=== PATIENT | female | born 1995 | race Caucasian/White ===

== ENCOUNTER 2025-02-10 19:22 | Emergency (ER) | payer OTHER, SELFPAY ==
--- OUTSIDE RECORDS SUMMARY | 2025-02-10 19:28 | XMS_ITS | Clinical Summary ---
Author Organization [facility] Address [address] [place] [address] Phone Care Team Providers Care Attendant Arcade Name Role Phone Tushar Giles MD Unavailable Provider, None Primary Care Provider Unavailabl e Allergies Active Allergy Reactions Criticality Noted Date Comments Lactose Diarrhea Low 11/13/2022 Medications valACYclovir HCl (VALTREX PO) Take 500 mg by mouth daily. Active HYDROcodone-acetami nophen (NORCO) 5-325 MG TabletIndications:S /P laparoscopic cholecystectomy Take 1 Tablet by mouth every 8 hours as needed for Moderate or more severe pain. 12 Tablet 11/22/19 23 Active Additional Information Patient not taking.Reported on 12/11/2022 meclizine (ANTIVERT) 25 MG TabletIndications:D izziness,Vertigo Take 1 Tablet by mouth 3 times daily as needed for Dizziness. Indications: Dizzy, Sensation of Spinning or Whirling 30 Tablet 08/05/20 24 Active Additional Information Patient not taking.Reported on 11/30/2024 Active Problems No known active problems Encounters Date Type Department Care Team Description 11/30/2024 7:17 PM BUSINESS OPERATIONS ANALYST - 11/30/2024 8:37 PM BUSINESS OPERATIONS ANALYST Emergency [facility] Emergency [address] [place] [address] Lala Robertson, TELECOMMUNICATIONS FIELD TECHNICIAN, HEAD OF TALENT MANAGEMENT Sprain and strain of left ankle Discharge Disposition: Discharged to home or Selfcare 11/30/2024 Travel from Last 3 Months Family History Medical History Relation Name Comments Cancer Father liver High Cholesterol Mother Hypertension Mother No Known Problems Son Relation Name Status Comments Father Half-Brother Has not met Other Mother Alive Son Alive Social History Tobacco Use Types Packs/Day Years Used Date Smoking Tobacco: Never Smokeless Tobacco: Never Tobacco Cessation:Counseling Given: Not Answered Alcohol Use Standard Drinks/Week Comments Yes 0 (1 standard drink = 0.6 oz pur e alcohol) ocassionally Sexually Active Control Partners Comments Yes None Female Comments No Sex and Gender Information Value Date Recorded Sex Assigned at Female 08/05/2024 5:31 PM CDT Legal Sex Female 9:43 AM CDT Gender Identity Female 08/05/2024 5:31 PM CDT Sexual Orientation Not on file Last Filed Vital Signs Vital Sign Reading Time Taken Comments Blood Pressure 124/68 11/30/2024 8:20 PM BUSINESS OPERATIONS ANALYST Pulse 90 11/30/2024 8:20 PM BUSINESS OPERATIONS ANALYST Temperature 36.7 C (98.1 F) 11/30/2024 8:20 PM BUSINESS OPERATIONS ANALYST Respiratory Rate 18 11/30/2024 8:20 PM BUSINESS OPERATIONS ANALYST Oxygen Saturation 100% 11/30/2024 8:20 PM BUSINESS OPERATIONS ANALYST Inhaled Oxygen Concentration - - Weight 115.7 kg (255 lb) 11/30/2024 7:31 PM BUSINESS OPERATIONS ANALYST Height 175.3 cm (5' 9 ) 11/30/2024 7:31 PM BUSINESS OPERATIONS ANALYST Body Mass Index 37.66 11/30/2024 7:31 PM BUSINESS OPERATIONS ANALYST Plan of Treatment Health Maintenance Due Date Last Done Comments Hepatitis C Virus (HCV) Screening 1995 Pap Smear 01/27/2016 Influenza Immunization (#1) 2024 SARS-COV-2 Immunization ( season) 2024 Respiratory Syncytial Virus (RSV) Immunization (Adult) (1 - 1-dose 75+ series) 2070 Hepatitis B Immunization Completed 995, 1995, 1995 DTaP/Tdap/Td Immunization Discontinued 2019, 02/28/1999, 04/28/1996, Additional history exists TdaP Immunization Completed 11/17/2019 Meningococcal Immunization (ACWY) Aged Out No longer eligible based on patient's age to complete this topic Pneumococcal Immunization Combined Aged Out No longer eligible based on patient's age to complete this topic Rotavirus Immunization Aged Out No lo nger eligible based on patient's age to complete this topic Procedures Procedure Name Priority Date/Time Associated Diagnosis Comments XR FOOT 3 OR MORE VIEWS LEFT STAT 11/30/2024 7:36 PM BUSINESS OPERATIONS ANALYST XR ANKLE 3 OR MORE VIEWS LEFT STAT 11/30/2024 7:35 PM BUSINESS OPERATIONS ANALYST from Last 3 Months Results * XR FOOT 3 OR MORE VIEWS LEFT (11/30/2024 7:36 PM BUSINESS OPERATIONS ANALYST) Anatomical Region Laterality Modality LOWER EXTREMITY, foot Left Digital Ra diography 11/30/2024 8:10 PM BUSINESS OPERATIONS ANALYST Impressions 11/30/2024 8:12 PM BUSINESS OPERATIONS ANALYST IMPRESSION: No acute osseous abnormality. Narrative 11/30/2024 8:12 PM BUSINESS OPERATIONS ANALYST EXAM DESCRIPTION: XR ANKLE 3 OR MORE VIEWS LEFT; XR FOOT 3 OR MORE VIEWS LEFT REASON FOR STUDY: pt c/o LT foot and ankle pain after she tripped and fell at work on Friday. TECHNIQUE: 3 radiographic view(s) of the left foot . 3 radiographic view(s) of the left ankle . COMPARISON: None available FINDINGS: No acute fracture or acute traumatic malalignment. Normal joint spaces. No focal bone lesions. No ankle effusion. Moderate-sized plantar calcaneal spur. Mild foot and ankle soft tissues THIS IS AN ELECTRONICALLY VERIFIED FINAL REPORT 11/30/2024 8:10 PM - Electronically signed by Elicia Kaur M.D. AT: AT Report ID: [id number] Reading Location: [id number] Procedure Note Elicia Kaur MD - 11/30/2024 EXAM DESCRIPTION: XR ANKLE 3 OR MORE VIEWS LEFT; XR FOOT 3 OR MORE VIEWS LEFT REASON FOR STUDY: pt c/o LT foot and ankle pain after she tripped and fell at work on Friday. TECHNIQUE: 3 radiographic view(s) of the left foot . 3 radiographic view(s) of the left ankle . COMPARISON: None available FINDINGS: No acute fracture or acute traumatic malalignment. Normal joint spaces. No focal bone lesions. No ankle effusion. Moderate-sized plantar calcaneal spur. Mild foot and ankle soft tissues THIS IS AN ELECTRONICALLY VERIFIED FINAL REPORT 11/30/2024 8:10 PM - Electronically signed by Elicia Kaur M.D. AT: AT Report ID: [id number] Reading Location: [id number] IMPRESSION: No acute osseous abnormality. Lala Robertson APRN, JARVIS IMG DIAGNOSTIC ORD ERABLES Final Result * XR ANKLE 3 OR MORE VIEWS LEFT (11/30/2024 7:35 PM BUSINESS OPERATIONS ANALYST) Anatomical Region Laterality Modality LOWER EXTREMITY, ankle Left Digital R adiography 11/30/2024 8:10 PM BUSINESS OPERATIONS ANALYST Impressions 11/30/2024 8:12 PM BUSINESS OPERATIONS ANALYST IMPRESSION: No acute osseous abnormality. Narrative 11/30/2024 8:12 PM BUSINESS OPERATIONS ANALYST EXAM DESCRIPTION: XR ANKLE 3 OR MORE VIEWS LEFT; XR FOOT 3 OR MORE VIEWS LEFT REASON FOR STUDY: pt c/o LT foot and ankle pain after she tripped and fell at work on Friday. TECHNIQUE: 3 radiographic view(s) of the left foot . 3 radiographic view(s) of the left ankle . COMPARISON: None available FINDINGS: No acute fracture or acute traumatic malalignment. Normal joint spaces. No focal bone lesions. No ankle effusion. Moderate-sized plantar calcaneal spur. Mild foot and ankle soft tissues THIS IS AN ELECTRONICALLY VERIFIED FINAL REPORT 11/30/2024 8:10 PM - Electronically signed by Elicia Kaur M.D. AT: AT Report ID: [id number] Reading Location: [id number] Procedure Note Elicia Kaur MD - 11/30/2024 EXAM DESCRIPTION: XR ANKLE 3 OR MORE VIEWS LEFT; XR FOOT 3 OR MORE VIEWS LEFT REASON FOR STUDY: pt c/o LT foot and ankle pain after she tripped and fell at work on Friday. TECHNIQUE: 3 radiographic view(s) of the left foot . 3 radiographic view(s) of the left ankle . COMPARISON: None available FINDINGS: No acute fracture or acute traumatic malalignment. Normal joint spaces. No focal bone lesions. No ankle effusion. Moderate-sized plantar calcaneal spur. Mild foot and ankle soft tissues THIS IS AN ELECTRONICALLY VERIFIED FINAL REPORT 11/30/2024 8:10 PM - Electronically signed by Elicia Kaur M.D. AT: AT Report ID: [id number] Reading Location: [id number] IMPRESSION: No acute osseous abnormality. Lala Robertson APRN, HEAD OF TALENT MANAGEMENT IMG DIAGNOSTIC ORD ERABLES Final Result from Last 3 Months Insurance MEDICAID [place] Care Teams Attendant Arcade Relationship Specialty Start Date End Date Provider, None [place] PCP - General 09/04/24 Tushar Giles MD [address] [address] Consulting Physician General Surgery 11/12/22
--- OUTSIDE RECORDS SUMMARY | 2025-02-10 19:28 | XMS_ITS | Clinical Summary ---
Author Organization [facility] Address [address] [place] [address] Care Team Providers Care Commercial Loan Officer Name Role Phone No, Physician Primary Care Provider [phone] Allergies Active Allergy Reactions Criticality Noted Date Comments Lactose Diarrhea Low Medications valACYclovir (VALTREX) 500 mg tabletIndications: Other (complete free text reason below),hsv positive Take 1 tablet (500 mg total) by mouth daily 30 tablet 12 2 Active norgestimate-ethin yl estradioL (ORTHO-CYCLEN) 0.25-35 mg-mcg per tabletIndications: Encounter for general counseling and advice on contraceptive management Take 1 tablet by mouth daily 28 tablet 12 2 Active nitrofurantoin monohydrate (MACROBID) 100 mg capsule Take 1 capsule (100 mg total) by mouth 2 (two) times a day 10 capsule 2 Active sertraline (ZOLOFT) 100 mg tablet TAKE 1 TABLET(100 MG) BY MOUTH DAILY 30 tablet 3 3 Active Active Problems Problem Noted Date Diagnosed Date Anxiety and depression 08/07/2022 Genital herpes 07/08/2019 Overview (07/08/2019): Daily suppressive valtrex PCOS (polycystic ovarian syndrome) 07/08/2019 Hirsutism 07/30/2016 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 Buspirone started ED visit 10/2019. Immunizations Immunization Administration Dates Next Due DTP / HiB 04/28/1996,1995,1995 ,1995 DTaP 02/28/1999 Hep A, Pediatric 01/17/2006,06/19/2005 Hep B, Adolescent or Pediatric 1995,1994,1995 MMR 02/28/1999,04/28/1996 OPV 02/28/1999,1995,1995 ,1995 Tdap 11/17/2019 Surgical History Surgery Date Site/Laterality Comments LUMBAR PUNCTURE WO INJECTION, DIAGNOSTIC 06/11/2016 N/A Medical History Medical History Date Comments Gonorrhea Anxiety and depression Zoloft x 1-1.5 years, last ~2014. Buspar briefly in 2019. HPV in female Family History Medical History Relation Name Comments Lung cancer Father Heart attack Maternal Grandfather Hyperlipidemia Maternal Grandfather Pancreatic cancer Maternal Grandfather Stroke Maternal Grandfather Pancreatic cancer Maternal Great-Grandfather Breast cancer Maternal Great-Grandmother Hypertension Mother Relation Name Status Comments Father Maternal Grandfather Maternal Great-Grandfather Maternal Great-Grandmother Mother Social History Tobacco Use Types Packs/Day Years Used Date Smoking Tobacco: Never Smokeless Tobacco: Never Tobacco Cessation:Counseling Given: Not Answered Alcohol Use Standard Drinks/Week Comments No 0 (1 standard drink = 0.6 oz pur e alcohol) Personal Safety Answer Date Recorded Getting School Help Needed Not on file 12/25 Comments No Sex and Gender Information Value Date Recorded Sex Assigned at Not on file Legal Sex Female 4:06 AM ABALONE SHELLER Gender Identity Not on file Sexual Orientation Not on file 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 . PPH secondary to atony, s/p methergine x1. Last Filed Vital Signs Vital Sign Reading Time Taken Comments Blood Pressure 121/77 08/08/2022 10:23 AM CDT Pulse 94 08/08/2022 10:23 AM CDT Temperature 37.2 C (99 F) 08/08/2022 10:23 AM CDT Respiratory Rate 18 08/08/2022 10:23 AM CDT Oxygen Saturation 100% 08/08/2022 10:23 AM CDT Inhaled Oxygen Concentration - - Weight 108.9 kg (240 lb) 08/08/2022 10:23 AM CDT Height 172.7 cm (5' 8 ) 08/08/2022 10:23 AM CDT Body Mass Index 36.49 08/08/2022 10:23 AM CDT Plan of Treatment Health Maintenance Due Date Last Done Comments Cervical Cancer Screening 1995 Depression Screening 1995 Varicella Vaccines (1 of 2 - 13+ 2-dose series) 01/27/2008 Regular Well Visit/Exam 18-64 05/14/2023 05/14/2022, 03/27/2021 Influenza Vaccine (Season Ended) 2025 DTaP/Tdap/Td Vaccine (7 - Td or Tdap) 11/17/2029 11/17/2019, 02/28/1999, 04/28/1996, Additional history exists Hepatitis B Screening Completed 1995 , 1995, 1995 Hepatitis C Screening Completed 07/06/2019, 016 HPV Vaccines Aged Out No longer eligi ble based on patient's age to complete this topic Pneumococcal vaccine <65 Aged Out No longer eligible based on patient's age to complete this topic Procedures Procedure Name Priority Date/Time Associated Diagnosis Comments HEPATITIS C ANTIBODY Routine 07/06/2019 10:47 AM CDT Encounter for supervision of normal first in first trimester 9 weeks gestation of from Last 3 Months or Most Recently Relevant to Health Maintenance Results * Hepatitis C antibody (07/06/2019 10:47 AM CDT) Hep C Ab Negative Negative [facility] SKIP Blood specimen (specimen) 07/06/2019 10:47 AM CDT 07/06/2019 7:53 PM CDT Samara Tellez MD LAB MICROBIOLOGY - NERAL ORDERABLES Final Result [facility] [address] [place] [address] from Last 3 Months or Most Recently Relevant to Health Maintenance Insurance IDPA [facility] CHOICE PLUS [facility] HMO/PPO Address: [address] [address] [place] [address] [facility] [employer] Address: [facility] [address] [place] [address] IDPA [facility] CHOICE PLUS [facility] HMO/PPO Address: [address] [address] [place] [address] IDPA Advance Directives For more information, please contact: [phone] * Full Code (Latest Code Status on File) Date Activated Date Inactivated Comments 02/03/2020 6:16 PM 02/05/2020 6:57 PM * Full Code Date Activated Date Inactivated Comments 02/03/2020 6:33 AM 02/03/2020 6:15 PM Full CPR in ca se of cardiopulmonary arrest Care Teams Commercial Loan Officer Relationship Specialty Start Date End Date No, Physician PCP - General 03/31/17
--- OUTSIDE RECORDS SUMMARY | 2025-02-10 19:28 | XMS_ITS | Referral Summary ---
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 Not on file Not on file Last Filed Vital Signs [...] 08/08/2022 10:23 AM CDT Plan of Treatment Not on file Procedures Procedure Name Priority Date/Time Associated Diagnosis Comments HEPATITIS C ANTIBODY Routine 07/06/2019 10:47 AM CDT Encounter for supervision of normal first in first trimester 9 weeks gestation of from Last 3 Months or Most Recently Relevant to Health Maintenance Results * Hepatitis C antibody (07/06/2019 10:47 AM CDT) Hep C Ab Negative Negative [facility] VALDIVIA Blood specimen (specimen) 07/06/2019 10:47 AM CDT 07/06/2019 7:53 PM CDT Samara Tellez MD LAB MICROBIOLOGY - NERAL ORDERABLES Final Result [facility] [address] [place] [address] from Last 3 Months or Most Recently Relevant to Health Maintenance Insurance IDPA [facility] CHOICE PLUS [employer] [facility] EMPL[employer]EE HE[employer] PLANS Address: [facility] [id number] [place] [address] [place] [address] [facility] CHOICE PLUS IDPA Advance Directives For more information, please contact: [phone] * Full Code (Latest Code Status on File) Date Activated Date Inactivated Comments 02/03/2020 6:16 PM 02/05/2020 6:57 PM * Full Code Date Activated Date Inactivated Comments 02/03/2020 6:33 AM 02/03/2020 6:15 PM Full CPR in ca se of cardiopulmonary arrest Care Teams Cosmetician Apprentice Relationship Specialty Start Date End Date No, Physician PCP - General 03/31/17
[2025-02-10 19:34] VITALS: BP 120/78; PULSE 72; RESP 16; TEMP 36.4; O2SAT 100
--- NOTE | 2025-02-10 19:39 | ED_ITS ---
HPI - Skin/Abscess/Foreign Bdy General Chief complaint: Skin/Abscess/Foreign Body Stated complaint: Skin/Abscess/Foreign Body Time Seen by Provider: 02/10/25 19:39 Source: patient Mode of arrival: ambulatory Limitations: no limitations History of Present Illness HPI narrative: 30-year-old female presented for complaint of a red round itchy rash to bilateral breasts. Onset 4 days. She has been applying clotrimazole. Denies lip, tongue, or throat swelling, shortness of breath or wheezing. Denies changes to soap, detergent, lotion, or any other exposures. No one else in the house or any contacts with similar symptoms. Related Data Allergies Allergy/AdvReac Type Severity Reaction Status Date / Time No Known Allergies Allergy Mild Verified 02/10/25 19:32 Review of Systems Review of Systems: [facility] Comments At time of signature, I have reviewed and agree with nursing past medical, surgical, social and family history unless otherwise noted. Please see nursing chart for further information. There is no relevant family history pertinent to the presenting complaint Exam Narrative: GENERAL: Well-appearing HEAD: Normocephalic, atraumatic. EYES: conjunctivae clear, and EOMI. ENT: Mucous membranes moist. Oropharynx without edema, erythema or lesions. NECK: Supple. No lymphadenopathy CHEST: Clear to auscultation. HEART: Regular rate and rhythm. SKIN: Warm, dry. bilateral breasts with erythematous round flat scaly lesion approx 1cm diameter, right breast with few additional scattered lesions <0.5cm diameter. Nontender, no drainage. NEURO: Alert and oriented x3. Course Course Emergency Course: Patient is aware of diagnosis, understands and agrees to treatment plan. Anticipatory guidance given. Patient agrees to follow-up as directed and is aware of reasons to seek care at the emergency department. Portions of this record may have been created with voice recognition software Level of Care: Express Care Visit Vital Signs Vital signs: Vital Signs Temperature 97.6 F 02/10/25 19:34 Pulse Rate 72 02/10/25 19:34 Respiratory Rate 16 02/10/25 19:34 Blood Pressure 120/78 02/10/25 19:34 Pulse Oximetry 100 02/10/25 19:34 Temperature 97.6 F 02/10/25 19:34 Pulse Rate 72 02/10/25 19:34 Respiratory Rate 16 02/10/25 19:34 Blood Pressure 120/78 02/10/25 19:34 Pulse Oximetry 100 02/10/25 19:34 Reviewed MDM - Skin/Abscess/Foreign Bdy MDM Narrative Medical decision making narrative: Discussed physical exam findings, pt has been using clotrimazole without relief, will send steroid . Advised supportive measures and signs/symptoms to go to the ER. Pt is appropriate for outpt treatment and f/u. Differential Diagnosis Differential diagnosis: Likely abscess of skin or subcutaneous tissue, viral exanthem, dermatophytosis, urticaria, herpes zoster, cellulitis, eczema, insect bites, impetigo and contact dermatitis Discharge Plan Discharge Clinical Impression: Dermatitis Patient Disposition: Home Condition: Stable Instructions: Dermatitis (ED) Additional Instructions: Wash the area with gentle soap and water only. Avoid scratching when possible to prevent worsening of the condition and disruption of the skin that could lead to bacterial infection To relieve itching, place a cool washcloth or some ice over the area that itches, rather than scratching Take medicine as directed Follow up with primary care provider ER if rash worsens or you have chest pain, trouble breathing, become hoarse, or start wheezing, develop belly cramps, vomiting or feel dizzy. Patient Language: Ukrainian Prescriptions: New methylprednisolone [Medrol (Don)] 4 mg tablets,dose pack See Rx Instructions .ROUTE .COMPLEX Qty: 21 0RF Rx Instructions: orally per package directions Follow-up/Referrals: PHYSICIAN,PATIENT CARE MANAGER [Primary Care Provider] - Time of Disposition: 19:49
== END 2025-02-10 19:52 | disposition home or self-care (01) ==
PROVIDERS: Emergency Provider Nurse Practitioner Family
DX: L30.9 Dermatitis, unspecified (principal)
CPT/HCPCS: 99213; G0463